=== PATIENT | female | born 1950 | race Caucasian/White ===

== ENCOUNTER 2017-12-14 09:02 | Emergency (ER) | payer MEDICARE, OTHER ==
--- NOTE | 2017-12-14 11:04 | EDM.PDOC ---
ED HPI GENERAL MEDICAL PROBLEM - General Chief Complaint: Gastrointestinal Problem Stated Complaint: [id number] NOT EATEN X 3 DAYS SLEEPING A LOT Time Seen by Provider: 12/14/17 11:15 Source of Information: Reports: Patient, Family, RN, RN Notes Reviewed History Limitations: Reports: No Limitations - History of Present Illness INITIAL COMMENTS - FREE TEXT/NARRATIVE: Pt presents to ER by POV with c/o onset of not feeling well in general on . On 12/10/17 she developed nausea, vomiting, and mild epigastric pain. Since that time she has been fatigued, and has had high blood sugars (200-320's) despite not eating. She denies fever or chills, diarrhea, constipation, or urinary symptoms. Know known sick contacts. Onset: Gradual Onset Date: 12/09/17 Duration: Constant Location: Reports: Abdomen Quality: Reports: Ache, Burning Severity: Moderate Improves with: Reports: None Worsens with: Reports: Eating Associated Symptoms: Reports: No Other Symptoms Abdomen Pain Score (Numeric/FACES): 2 - Related Data Allergies Allergy/AdvReac Type Severity Reaction Status Date / Time No Known Allergies Allergy Verified 12/14/17 11:10 Home Meds: Home Meds Insulin Aspart [Novolog Flexpen] 5 units SQ TID 12/14/17 [History] Past Medical History Endocrine/Metabolic History: Reports: Diabetes, Type I Social & Family History - Family History Family Medical History: Noncontributory - Tobacco Use Smoking Status *Q: Current Every Day Smoker Tobacco Use Within Last Twelve Months: Cigarettes - Living Situation & Occupation Living situation: Reports: , with Spouse Occupation: Employed ED ROS GENERAL - Review of Systems Review Of Systems: ROS reveals no pertinent complaints other than HPI. ED EXAM, GI/ABD - Physical Exam Exam: See Below Exam Limited By: No Limitations General Appearance: Alert, WD/WN, No Apparent Distress Eyes: Bilateral: Normal Appearance Ears: Normal External Exam, Hearing Grossly Normal Nose: Normal Inspection, Normal Mucosa, No Blood Throat/Mouth: Normal Lips, Normal Teeth, Normal Gums, Normal Oropharynx, Normal Voice, No Airway Compromise, Other (dry oral membranes) Head: Atraumatic, Normocephalic Neck: Normal Inspection, Supple, Non-Tender, Full Range of Motion. No: Lymphadenopathy (L), Lymphadenopathy (R) Respiratory/Chest: No Respiratory Distress, Lungs Clear, Normal Breath Sounds, No Accessory Muscle Use, Chest Non-Tender Cardiovascular: Regular Rate, Rhythm, No Edema GI/Abdominal Exam: Normal Bowel Sounds, Soft, No Distention, No Abnormal Bruit, Tender (mild epigastric tenderness to palpation). No: Guarding, Rigid, Rebound (Female) Exam: Deferred Rectal (Female) Exam: Deferred Back Exam: Normal Inspection, Full Range of Motion. No: CVA Tenderness (L), CVA Tenderness (R) Extremities: Normal Inspection, Normal Range of Motion, Non-Tender, Normal Capillary Refill, No Pedal Edema Neurological: Alert, Oriented, CN II-XII Intact, Normal Cognition, Normal Gait, No Motor/Sensory Deficits Psychiatric: Normal Affect, Normal Mood Skin Exam: Warm, Dry, Intact, Normal Color, No Rash EKG INTERPRETATION EKG Date: 12/14/17 Time: 11:23 Rhythm: Other (SR) Rate (Beats/Min): 78 [place]: LAD-Left [place] Deviation P-Wave: Present QRS: Other (inferior Q-waves, anterior Q-waves) ST-T: Other (non-specific ST-T wave abnormalities) QT: Normal Comparison: NA - No Prior EKG Course - Vital Signs Last Recorded V/S: Last Vital Signs Temp 36.9 C 12/14/17 11:04 Pulse 82 12/14/17 11:04 Resp 16 12/14/17 11:04 BP 106/56 L 12/14/17 11:04 Pulse Ox 98 12/14/17 11:04 - Orders/Labs/Meds Orders: Active Orders 24 hr Category Date Time Status Blood Glucose Check, Bedside [] ONETIME Care 12/14/17 11:10 Active EKG 12 Lead [EKG Documentation Completion] [] STAT Care 12/14/17 11:10 Active Peripheral IV Care [] . DIRECTED Care 12/14/17 11:10 Active CULTURE BLOOD [BC] Stat Lab 12/14/17 11:22 Received CULTURE BLOOD [BC] Stat Lab 12/14/17 11:39 Received CULTURE URINE [RM] Stat Lab 12/14/17 11:10 Received UA W/MICROSCOPIC [URIN] Stat Lab 12/14/17 11:10 Ordered Sodium Chloride 0.9% [Saline Flush] Med 12/14/17 11:10 Active 10 ml FLUSH ASDIRECTED PRN cefTRIAXone [Rocephin] Med 12/14/17 13:48 Once 1 gm IVPUSH ONETIME ONE Blood Culture x2 Reflex Set [OM.PC] Stat Oth 12/14/17 11:10 Ordered Peripheral IV Insertion Adult [OM.PC] Stat Oth 12/14/17 11:10 Ordered Medication Orders Sodium Chloride (Saline Flush) 10 ml FLUSH ASDIRECTED PRN PRN Reason: Keep Vein Open Last Admin: 12/14/17 11:49 Dose: 10 ml Labs: Laboratory Tests 12/14/17 12/14/17 12/14/17 Range/Units 11:10 11:21 11:22 WBC 11.7 H (5.0-10.0) 10^3/uL RBC 5.03 (4.2-5.4) 10^6/uL Hgb 15.4 (12.0-16.0) g/dL Hct 43.9 (37.0-47.0) % MCV 87.3 (80-100) fL MCH 30.6 (27.0-34.0) pg MCHC 35.1 H (33.0-35.0) g/dL Plt Count 298 (150-450) 10^3/uL Neut % (Auto) 69.0 (42.2-75.2) % Lymph % (Auto) 19.1 L (20.5-50.1) % [place] % (Auto) 11.4 H (2-8) % Eos % (Auto) 0.2 L (1.0-3.0) % Baso % (Auto) 0.3 (0.0-1.0) % Sodium (135-145) mmol/L Potassium (3.6-5.0) mmol/L Chloride (101-111) mmol/L Carbon Dioxide (21.0-31.0) mmol/L Anion Gap BUN (7-18) mg/dL Creatinine (0.6-1.3) mg/dL Est Cr Clr Drug Dosing mL/min Estimated GFR (MDRD) BUN/Creatinine Ratio Glucose (74-105) mg/dL POC Glucose 231 H (70-105) mg/dl Lactic Acid (0.5-2.2) mmol/L Calcium (8.4-10.2) mg/dl Phosphorus (2.5-4.6) mg/dL Magnesium (1.8-2.5) mg/dL Total Bilirubin (0.2-1.0) mg/dL AST (10-42) IU/L ALT (10-60) IU/L Alkaline Phosphatase (42-121) IU/L Troponin I (0.00-0.02) ng/ml Total Protein (6.7-8.2) g/dl Albumin (3.2-5.5) g/dl Globulin Albumin/Globulin Ratio Amylase (28-100) U/L Lipase (22-51) U/L Urine Color Yellow (YELLOW) Urine Appearance Slightly cloudy (CLEAR) Urine pH 6.0 (5.0-9.0) Ur Specific [place] 1.020 (1.005-1.030) Urine Protein 100 H (NEGATIVE) Urine Glucose (UA) 250 H (NEGATIVE) Urine Ketones 40 H (NEGATIVE) Urine Occult Blood Trace-lysed H (NEGATIVE) Urine Nitrite Negative (NEGATIVE) Urine Bilirubin Small H (NEGATIVE) Urine Urobilinogen 0.2 (0.2-1.0) mg/dL Ur Leukocyte Esterase Negative (NEGATIVE) Urine RBC 0-5 /HPF Urine WBC 5-10 H (0-5/HPF) /HPF Ur Epithelial Cells Moderate H /HPF Urine Bacteria Many H (0-FEW/HPF) /HPF Hyaline Casts Few H /LPF Urine Mucus Few H /LPF Ketones 12/14/17 12/14/17 Range/Units 11:22 11:22 WBC (5.0-10.0) 10^3/uL RBC (4.2-5.4) 10^6/uL Hgb (12.0-16.0) g/dL Hct (37.0-47.0) % MCV (80-100) fL MCH (27.0-34.0) pg MCHC (33.0-35.0) g/dL Plt Count (150-450) 10^3/uL Neut % (Auto) (42.2-75.2) % Lymph % (Auto) (20.5-50.1) % [place] % (Auto) (2-8) % Eos % (Auto) (1.0-3.0) % Baso % (Auto) (0.0-1.0) % Sodium 130 L (135-145) mmol/L Potassium 3.3 L (3.6-5.0) mmol/L Chloride 88 L (101-111) mmol/L Carbon Dioxide 29.0 (21.0-31.0) mmol/L Anion Gap 16.3 BUN 35 H (7-18) mg/dL Creatinine 1.2 (0.6-1.3) mg/dL Est Cr Clr Drug Dosing 39.82 mL/min Estimated GFR (MDRD) 45 BUN/Creatinine Ratio 29.16 Glucose 232 H (74-105) mg/dL POC Glucose (70-105) mg/dl Lactic Acid 1.9 (0.5-2.2) mmol/L Calcium 9.4 (8.4-10.2) mg/dl Phosphorus 3.2 (2.5-4.6) mg/dL Magnesium 2.1 (1.8-2.5) mg/dL Total Bilirubin 1.3 H (0.2-1.0) mg/dL AST 22 (10-42) IU/L ALT 11 (10-60) IU/L Alkaline Phosphatase 100 (42-121) IU/L Troponin I 0.02 (0.00-0.02) ng/ml Total Protein 7.9 (6.7-8.2) g/dl Albumin 4.6 (3.2-5.5) g/dl Globulin 3.3 Albumin/Globulin Ratio 1.39 Amylase 42 (28-100) U/L Lipase 33 (22-51) U/L Urine Color (YELLOW) Urine Appearance (CLEAR) Urine pH (5.0-9.0) Ur Specific [place] (1.005-1.030) Urine Protein (NEGATIVE) Urine Glucose (UA) (NEGATIVE) Urine Ketones (NEGATIVE) Urine Occult Blood (NEGATIVE) Urine Nitrite (NEGATIVE) Urine Bilirubin (NEGATIVE) Urine Urobilinogen (0.2-1.0) mg/dL Ur Leukocyte Esterase (NEGATIVE) Urine RBC /HPF Urine WBC (0-5/HPF) /HPF Ur Epithelial Cells /HPF Urine Bacteria (0-FEW/HPF) /HPF Hyaline Casts /LPF Urine Mucus /LPF Ketones Negative Meds: Medications Generic Name Dose Route Start Last Admin Trade Name Freq PRN Reason Stop Dose Admin Sodium Chloride 10 ml 12/14/17 11:10 12/14/17 11:49 Saline Flush FLUSH 10 ml ASDIRECTED PRN Administration Keep Vein Open Discontinued Medications Generic Name Dose Route Start Last Admin Trade Name [place] PRN Reason Stop Dose Admin Famotidine 20 mg 12/14/17 12:20 12/14/17 12:44 Pepcid IVPUSH 12/14/17 12:21 20 mg ONETIME ONE Administration Sodium Chloride 1,000 mls @ 999 mls/hr 12/14/17 11:11 12/14/17 11:49 Normal Saline IV 12/14/17 12:11 999 mls/hr .BOLUS ONE Administration Sodium Chloride 1,000 mls @ 999 mls/hr 12/14/17 12:20 12/14/17 12:50 Normal Saline IV 12/14/17 13:20 999 mls/hr .BOLUS ONE Administration Ondansetron HCl 4 mg 12/14/17 11:11 12/14/17 11:53 Zofran IV 12/14/17 11:12 4 mg ONETIME ONE Administration Ondansetron HCl 4 mg 12/14/17 12:20 12/14/17 12:47 Zofran IV 12/14/17 12:21 4 mg ONETIME ONE Administration - Re-Assessments/Exams Free Text/Narrative Re-Assessment/Exam: 12/14/17 13:48 Pt tolerated a meal without vomiting following tx in ER with IVF, zofran, pepcid. Departure - Departure Time of Disposition: 13:49 Disposition: Home, Self-Care 01 Condition: Fair Clinical Impression: Dehydration Gastritis Qualifiers: Gastritis type: unspecified gastritis Chronicity: acute Gastritis bleeding: without bleeding Qualified Code(s): K29.00 - Acute gastritis without bleeding UTI (urinary tract infection) Qualifiers: Urinary tract infection type: site unspecified Hematuria presence: without hematuria Qualified Code(s): N39.0 - Urinary tract infection, site not specified - Discharge Information Instructions: Dehydration, Adult, Gastritis, Adult, [id number], Urinary Tract Infection, Adult Forms: ED Department Discharge Additional Instructions: Rx: Zofran 4mg Rx: Omeprazole 20mg Rx: Carafate 1g Rx: Cipro 500mg Soft bland diet, avoid greasy or fried foods, spicy foods, alcohol, and carbonated beverages. Monitor your blood sugar closely. Follow up in clinic in 7 to 10 days for recheck. Return to ER if worse at any time. - My Orders Last 24 Hours: My Active Orders 12/14/17 11:10 Blood Glucose Check, Bedside [RC] ONETIME EKG 12 Lead [EKG Documentation Completion] [RC] STAT Peripheral IV Care [RC] . DIRECTED CULTURE URINE [RM] Stat UA W/MICROSCOPIC [URIN] Stat Sodium Chloride 0.9% [Saline Flush] 10 ml FLUSH ASDIRECTED PRN Blood Culture x2 Reflex Set [OM.PC] Stat Peripheral IV Insertion Adult [OM.PC] Stat 12/14/17 11:22 CULTURE BLOOD [BC] Stat 12/14/17 11:39 CULTURE BLOOD [BC] Stat 12/14/17 13:48 cefTRIAXone [Rocephin] 1 gm IVPUSH ONETIME ONE - Assessment/Plan Last 24 Hours: My Active Orders 12/14/17 11:10 Blood Glucose Check, Bedside [RC] ONETIME EKG 12 Lead [EKG Documentation Completion] [RC] STAT Peripheral IV Care [RC] . DIRECTED CULTURE URINE [RM] Stat UA W/MICROSCOPIC [URIN] Stat Sodium Chloride 0.9% [Saline Flush] 10 ml FLUSH ASDIRECTED PRN Blood Culture x2 Reflex Set [OM.PC] Stat Peripheral IV Insertion Adult [OM.PC] Stat 12/14/17 11:22 CULTURE BLOOD [BC] Stat 12/14/17 11:39 CULTURE BLOOD [BC] Stat 12/14/17 13:48 cefTRIAXone [Rocephin] 1 gm IVPUSH ONETIME ONE
[2017-12-14] MEDS ORDERED: Sodium Chloride 0.9% 10 ML Syringe FLUSH PRN (11:10)
[2017-12-14] MEDS ORDERED: Sodium Chloride 0.9% 1,000 ML IV ONE ×2 (11:11→12:20)
[2017-12-14] MEDS ORDERED: Ondansetron 4 MG/2 ML SDV IV ONE ×2 (11:11→12:20)
[2017-12-14 11:53] LABS: ANION GAP 16.3; CHLORIDE,CL 88 mmol/L (101-111); SODIUM,NA 130 mmol/L (135-145)
[2017-12-14] MEDS: Famotidine 20 MG/2 ML SDV IVPUSH ONE ×2 (12:44→12:46)
[2017-12-14] MEDS ORDERED: cefTRIAXone 1 GM Vial IVPUSH ONE (13:48)
--- NOTE | 2017-12-16 13:33 | EKG ---
12/14/2017- STEPHANI FRASER - FINDINGS: EKG shows a heart rate of 78 beats per minute with a normal sinus rhythm. T-wave inversions in V1 to V4. Flat T-waves in the inferior leads. [facility] /[id number]
== END 2017-12-14 14:10 | disposition home or self-care (01) ==
LOC: DL.ED 09:02
DX: K29.00 Acute gastritis without bleeding (principal); N39.0 Urinary tract infection, site not specified; E10.9 Type 1 diabetes mellitus without complications; F17.210 Nicotine dependence, cigarettes, uncomplicated
CPT/HCPCS: 36415; 80053; 81001; 82009; 82150; 82962; 83605; 83690; 83735; 84100; 84484; 85025; 87040; 87086; 93005; 93010; 96361; 96374; 96375; 96376; 99283; 99284; J0696; J2405; J7030; J7050; S0028